=== PATIENT | female | born 1985 | race Two or more races ===

== ENCOUNTER 2017-04-17 02:35 | Emergency (ER) | payer MEDICARE, OTHER ==
[~2017-04-17] VITALS: Ht 172.7 cm; Wt 64.8 kg
[~2017-04-17 02:35] MED LIST: ONDA8TAB9 PO
[2017-04-17] MEDS ORDERED: KETO5DRO3 RIGHTEYE (03:47)
[2017-04-17 04:01] VITALS: BP 137/92
== END 2017-04-17 04:04 | disposition home or self-care (01) ==
LOC: ER 02:36
DX: H11.31 Conjunctival hemorrhage, right eye (principal)
CPT/HCPCS: 99283

== ENCOUNTER 2017-05-06 23:56 | Emergency (ER) | payer MEDICARE, OTHER ==
[~2017-05-06] VITALS: Ht 172.7 cm; Wt 68.2 kg
[~2017-05-06 23:56] MED LIST changes: +KETO5DRO3 RIGHTEYE
[2017-05-06 23:58] VITALS: BP 137/91
== END 2017-05-07 02:51 | disposition left against medical advice (07) ==
LOC: ER 23:56
DX: J02.9 Acute pharyngitis, unspecified (principal); Z53.21 Procedure and treatment not carried out due to patient leaving prior to being seen by health care provider